=== PATIENT | female | born 1950 | race Caucasian/White ===

== ENCOUNTER 2022-05-30 06:02 | Observation (INO) | payer MEDICARE ==
[2022-05-27 11:17] LABS: BASOPHILS % (AUTO) 0.9 % (0.0-5.0); EOSINOPHILS % (AUTO) 0.9 % (0.0-8.0); HEMATOCRIT 40.9 % (36-48); LYMPHOCYTES % (AUTO) 16.7 % (21.0-51.0); MEAN CORPUSCULAR HEMOGLOBIN 30.9 pg (27.0-33.0); MEAN CORPUSCULAR HGB CONC 31.5 g/dL (32.0-36.0); MEAN CORPUSCULAR VOLUME 98.1 fL (79-99); NEUTROPHILS % (AUTO) 72.2 % (40.0-77.0); PLATELET COUNT (AUTO) 242 K/uL (130-400); RED BLOOD CELL COUNT(AUTO) 4.17 MIL/uL (4.00-5.50); RED CELL DISTRIBUTION WIDTH 12.7 % (11.0-15.5); WHITE BLOOD COUNT (AUTO) 7.4 K/uL (4.8-10.8)
[2022-05-27 11:18] LABS: APPEARANCE,URINE CLEAR (CLEAR); BILIRUBIN,URINE NEGATIVE (NEGATIVE); COLOR,URINE LIGHT-YELLOW (YELLOW); GLUCOSE, URINE (UA) NEGATIVE (NEGATIVE); KETONES,URINE NEGATIVE (NEGATIVE); LEUKOCYTE ESTERASE ,URINE 500 Leu/uL (NEGATIVE); NITRATE,URINE NEGATIVE (NEGATIVE); PH,URINE 5.5 (5.0-8.0); PROTEIN,URINE NEGATIVE (NEGATIVE); UROBILINOGEN,URINE 0.2 mg/dL (0.2-1.0)
[2022-05-27 11:41] LABS: ALBUMIN 3.9 g/dL (3.5-5.0); CARBON DIOXIDE 31 mmol/L (21-32); CHLORIDE 105 mmol/L (101-111); CREATININE 1.1 mg/dL (0.5-1.5); GLOMERULAR FILTR. RATE CALC 52 mL/min (>60); GLUCOSE,RANDOM 94 mg/dL (70-105); POTASSIUM 4.8 mmol/L (3.5-5.1); SODIUM SERUM 141 mmol/L (136-145); UREA NITROGEN, BLOOD 38 mg/dL (7-18)
[2022-05-27 11:49] LABS: INR 0.98 (0.85-1.15); PROTHROMBIN TIME 10.7 SEC (9.6-11.6)
[2022-05-27 12:25] LABS: BACTERIA,URINE MOD /HPF (None Seen); MUCUS,URINE RARE LPF (None Seen); SQUAMOUS EPITHELIAL CELL,UR RARE /HPF (0-2)
[2022-05-27 12:45] VITALS: BP 151/71
[2022-05-27 13:06] LABS: CRP QUANTITATIVE < 2.00 mg/L (0.00-9.0)
[~2022-05-30] VITALS: Ht 170.2 cm; Wt 61.6 kg
[2022-05-30] VITALS (30 sets, daily range): BP systolic 100–150; BP diastolic 40–78
[~2022-05-30 06:02] MED LIST: CALC-116 PO; CEFAZOLIN SODIUM 1 GM VIAL IVP SCH; CELE200 PO; LISI10TA24 PO; OMEG-116 PO; VITAMIN D3 PO
[2022-05-30] MEDS ORDERED: ROPIVACAINE 0.5% 5MG/ML 30ML IJ ONE (06:16)
[2022-05-30] MEDS ORDERED: LACTATED RINGERS 1000ML 1,000 ML IV ONE (06:36)
[2022-05-30] MEDS ORDERED: MIDAZOLAM HCL 1 MG/ML 2ML VIAL ONE (07:26)
[2022-05-30] MEDS ORDERED: FENTANYL CITRATE PF 50 MCG/1 ML 2ML VIAL ONE ×2 (07:26→08:33)
[2022-05-30] MEDS ORDERED: PROPOFOL 10 MG/ML 20ML VIAL IV ONE (07:27)
[2022-05-30] MEDS ORDERED: ROCURONIUM 10MG/1ML SYR 10 MG/ML ML ONE (07:27)
[2022-05-30] MEDS ORDERED: LIDOCAINE PF 100MG/5ML (2%) SYRINGE 5ML ONE (07:58)
[2022-05-30] MEDS ORDERED: DEXAMETHASONE SOD PHOSPHATE 10MG/ML 1ML VIAL ONE (08:01)
[2022-05-30] MEDS ORDERED: KETOROLAC 30MG VIAL (30MG/ML) ONE (08:01)
[2022-05-30] MEDS ORDERED: PHENYLEPHRINE HCL 10 MG/ML 1ML VIAL IV ONE (08:02)
[2022-05-30] MEDS ORDERED: GLYCOPYRROLATE 1 MG/5 ML SYRINGE ONE (08:02)
[2022-05-30] MEDS ORDERED: NEOSTIGMINE 5MG/5ML SYR IV ONE (08:02)
[2022-05-30] MEDS: TRANEXAMIC ACID 1000MG/10ML ONE ×2 (08:08→09:30)
[2022-05-30] MEDS ORDERED: LIDOCAINE HCL-MPF 1% 2ML VIAL IV PRN (10:00)
[2022-05-30] MEDS ORDERED: POTASSIUM CHLORIDE 10% ELIXIR 20 MEQ/15 ML UDCUP PO PRN (10:00)
[2022-05-30] MEDS ORDERED: CYCLOBENZAPRINE HCL 10 MG TABLET PO PRN (10:00)
[2022-05-30] MEDS ORDERED: HYDROCODONE/ACETAMINOPHEN 5/325 MG TAB PO PRN (10:00)
[2022-05-30] MEDS ORDERED: POTASSIUM CHLORIDE 20MEQ/100ML 100 ML IV PRN (10:00)
[2022-05-30] MEDS: KETOROLAC 15MG/ML VIAL (15MG/ML) IV SCH ×2 (10:00→18:18)
[2022-05-30] MEDS ORDERED: KCL 20 MEQ ERTAB PO PRN (10:00)
[2022-05-30] MEDS ORDERED: FERROUS FUMARATE 324 MG TABLET PO PRN (10:00)
[2022-05-30] MEDS ORDERED: CALCIUM CARB 500MG PO PRN (10:00)
[2022-05-30] MEDS ORDERED: HYDROMORPHONE 1 MG INJ ONE ×2 (10:20→10:43)
[2022-05-30] MEDS: ONDANSETRON 4MG INJ IVP PRN (11:16)
[2022-05-30] MEDS: DOCUSATE SODIUM 100 MG CAP PO SCH (14:43)
[2022-05-30] MEDS: GABAPENTIN 100 MG CAPSULE PO SCH ×2 (14:43→20:24)
[2022-05-30] MEDS: 0.9%NACL 1000ML 1,000 ML IV SCH ×2 (14:51→20:00)
[2022-05-30] MEDS: CEFAZOLIN SODIUM 1 GM VIAL IVP SCH ×2 (15:21→22:54)
[2022-05-31] VITALS (7 sets, daily range): BP systolic 94–109; BP diastolic 41–63
[2022-05-31] MEDS: KETOROLAC 15MG/ML VIAL (15MG/ML) IV SCH (02:36)
[2022-05-31] MEDS: 0.9%NACL 1000ML 1,000 ML IV SCH (03:53)
[2022-05-31 04:51] LABS: HEMATOCRIT 27.6 % (36-48); MEAN CORPUSCULAR HEMOGLOBIN 31.6 pg (27.0-33.0); MEAN CORPUSCULAR HGB CONC 33.7 g/dL (32.0-36.0); MEAN CORPUSCULAR VOLUME 93.9 fL (79-99); RED BLOOD CELL COUNT(AUTO) 2.94 MIL/uL (4.00-5.50); RED CELL DISTRIBUTION WIDTH 12.6 % (11.0-15.5); WHITE BLOOD COUNT (AUTO) 9.5 K/uL (4.8-10.8)
[2022-05-31 05:08] LABS: CREATININE 1.1 mg/dL (0.5-1.5); POTASSIUM 4.2 mmol/L (3.5-5.1)
[2022-05-31] MEDS: HYDROCODONE/ACETAMINOPHEN 5/325 MG TAB PO PRN (08:26)
[2022-05-31] MEDS: MAGNESIUM PO SCH (09:00)
[2022-05-31] MEDS: VITAMIN D3 2000 UNIT PO SCH (09:00)
[2022-05-31] MEDS: CALCIUM PO SCH (09:00)
[2022-05-31] MEDS: DOCUSATE SODIUM 100 MG CAP PO SCH (10:00)
[2022-05-31] MEDS: ASPIRIN 325MG TAB PO SCH (10:28)
[2022-05-31] MEDS: GABAPENTIN 100 MG CAPSULE PO SCH ×5 (10:28→20:43)
[2022-05-31] MEDS: FISH OIL 1000 MG/CAP PO SCH (10:29)
[2022-05-31] MEDS: LISINOPRIL 10 MG TABLET PO SCH (10:29)
[2022-05-31] MEDS: POLYETHYLENE GLYCOL 3350 17 GM POWD.PACK PO SCH (10:29)
[2022-05-31] MEDS ORDERED: CEFAZOLIN SODIUM 1 GM VIAL IVP SCH (16:00)
[2022-05-31] MEDS: TRAMADOL HCL 50 MG TABLET PO PRN (19:52)
[2022-06-01] VITALS: BP 128/72
[2022-06-01 04:00] VITALS: BP 120/63
[2022-06-01 07:58] VITALS: BP 91/56
[2022-06-01] MEDS: GABAPENTIN 100 MG CAPSULE PO SCH (08:52)
[2022-06-01] MEDS: POLYETHYLENE GLYCOL 3350 17 GM POWD.PACK PO SCH (08:52)
[2022-06-01] MEDS: FISH OIL 1000 MG/CAP PO SCH (08:52)
[2022-06-01] MEDS: HYDROCODONE/ACETAMINOPHEN 5/325 MG TAB PO PRN (08:52)
[2022-06-01] MEDS: ASPIRIN 325MG TAB PO SCH (08:52)
[2022-06-01] MEDS: VITAMIN D3 2000 UNIT PO SCH (08:56)
[2022-06-01] MEDS: LISINOPRIL 10 MG TABLET PO SCH (08:57)
[2022-06-01] MEDS: MAGNESIUM PO SCH (08:57)
[2022-06-01] MEDS: CALCIUM PO SCH (08:57)
[2022-06-01] MEDS: DOCUSATE SODIUM 100 MG CAP PO SCH (10:00)
[2022-06-01 11:14] VITALS: BP 96/58
[2022-06-01] MEDS: ONDANSETRON 4MG INJ IVP PRN (12:32)
[2022-06-01] MEDS ORDERED: HYDR-4060 PO (13:22)
[2022-06-01] MEDS: TRAMADOL HCL 50 MG TABLET PO PRN (15:13)
[2022-06-02] MEDS ORDERED: BISACODYL 10 MG SUPP.RECT RC PRN (10:00)
== END 2022-06-01 15:30 ==
LOC: DAH 06:02 → DAHIP 06:04 → 4DH 11:30 → UNDOADMOB 13:13 → DAHIP 13:13
PROVIDERS: ADMIT Student in an Organized Health Care Education/Training Program; ATTEND Student in an Organized Health Care Education/Training Program
DX: M16.12 Unilateral primary osteoarthritis, left hip (principal); Z20.822 Contact with and (suspected) exposure to COVID-19; M25.552 Pain in left hip; G89.29 Other chronic pain; D62 Acute posthemorrhagic anemia; I10 Essential (primary) hypertension
CPT/HCPCS: 82040; 80048 ×2; 85025; 85610; 85730; 87077; 87088; 87186; 84134; 86140; 87426; 81001; 36415 ×2; 87641; 27130; 96374; 96376 ×2; 96375 ×2; 76942; 64450; 73502; 73503; 97161; 97039 ×5; 85027; 97116 ×4; 97530 ×2; G0378 ×50; G0379; J7120; J3010 ×2; J0690 ×4; J1170 ×2; J3490 ×2; J1100; J2710; J2001; J2250; J2704; J2405 ×2; J1885 ×3; J2795; J2370; A4649 ×3; G0168; C1776; A6255; A5120; A4215; A4223; A4222; A4221; A4663; J7030

== ENCOUNTER → 2024-12-16 | Outpatient (CLI) | payer MEDICARE ==
[~2024-12-16] MED LIST changes: -CEFAZOLIN SODIUM 1 GM VIAL IVP SCH; +HYDR-4060 PO
--- NOTE | 2024-12-16 15:22 | HMCIMG ---
Exam Type: LUMBAR W FLEXION/EXTENSION Clinical Information: DORSALGIA, SPINAL STENOSIS, LUMBAR REGION W/O NEUROGENIC CLAUDICATION Comparison: None Findings: Exam of the lumbosacral spine demonstrates no evidence of fracture, subluxation. There are spondylitic changes and there are degenerative changes of the facet joints. There is straightening of the spine consistent with spasm. There is grade 1 retrolisthesis of L2 on L3 and of L3 over 4 caused by degeneration of the facet joints. After lateral flexion and extension views, there is no abnormal motion. There is evidence of degenerative disc disease with disc space narrowing involving L5-S1. Impression: Degenerative disc disease suspected as noted. Other degenerative and chronic changes as noted.
== END | disposition home or self-care (01) ==
LOC: RAH 14:31
PROVIDERS: ATTEND Physical Medicine & Rehabilitation
DX: M51.379 Other intervertebral disc degeneration, lumbosacral region without mention of lumbar back pain or lower extremity pain (principal); M48.061 Spinal stenosis, lumbar region without neurogenic claudication; M54.9 Dorsalgia, unspecified; M43.16 Spondylolisthesis, lumbar region; M48.07 Spinal stenosis, lumbosacral region; M47.816 Spondylosis without myelopathy or radiculopathy, lumbar region; M16.12 Unilateral primary osteoarthritis, left hip
CPT/HCPCS: 72114

== ENCOUNTER → 2025-03-25 | Outpatient (CLI) | payer MEDICARE ==
--- NOTE | 2025-03-25 15:59 | HMCIMG ---
EXAM: CR right Knee, 3 View. CLINICAL HISTORY: PAIN IN RIGHT KNEE COMPARISON: None provided. FINDINGS: BONES: No acute fracture or aggressive appearing osseous lesion. JOINTS: Small suprapatellar joint effusion. The bony structures appear demineralized. Moderate medial compartment degenerative joint disease changes and mild lateral compartment degenerative joint disease changes. SOFT TISSUES: The soft tissues are unremarkable. IMPRESSION: 1. No acute osseous injury. 2. Small suprapatellar joint effusion. 3. Moderate medial and mild lateral compartment degenerative joint disease. 4. Osteopenia. /Suffern
== END | disposition home or self-care (01) ==
LOC: RAH 08:20
PROVIDERS: ATTEND Physical Medicine & Rehabilitation
DX: M17.11 Unilateral primary osteoarthritis, right knee (principal); M85.88 Other specified disorders of bone density and structure, other site; M25.561 Pain in right knee; M25.461 Effusion, right knee
CPT/HCPCS: 73562